=== PATIENT | female | born 1975 | race Caucasian/White ===

== ENCOUNTER → 2024-09-16 08:01 | Outpatient (REF) | payer OTHER, SELFPAY | LOC: HWWDC 08:01 | PROVIDERS: ATTENDING PHYSICIAN Nurse Practitioner Family | DX: Z12.31 Encounter for screening mammogram for malignant neoplasm of breast (principal) | CPT/HCPCS: 77063; 77067 ==

== ENCOUNTER → 2024-09-22 09:27 | Outpatient (REF) | payer OTHER, SELFPAY | LOC: WDC 09:27 | PROVIDERS: ATTENDING PHYSICIAN Nurse Practitioner Family | DX: R92.8 Other abnormal and inconclusive findings on diagnostic imaging of breast (principal) | CPT/HCPCS: 76642 ==

== ENCOUNTER 2025-03-30 06:24 | Day surgery (SDC) | payer OTHER, SELFPAY | END 2025-03-30 13:21 | disposition home or self-care (01) | LOC: GI 06:24 | PROVIDERS: ATTENDING PHYSICIAN Internal Medicine Gastroenterology | DX: Z12.11 Encounter for screening for malignant neoplasm of colon (principal); K57.30 Diverticulosis of large intestine without perforation or abscess without bleeding; K64.8 Other hemorrhoids; D12.5 Benign neoplasm of sigmoid colon; K63.5 Polyp of colon; K62.1 Rectal polyp | CPT/HCPCS: 45385; 45380; 88305 ==

== ENCOUNTER → 2025-09-17 08:56 | Outpatient (REF) | payer OTHER, SELFPAY | LOC: HWWDC 08:56 | PROVIDERS: ATTENDING PHYSICIAN Nurse Practitioner Family | DX: Z12.31 Encounter for screening mammogram for malignant neoplasm of breast (principal) | CPT/HCPCS: 77063; 77067 ==

== ENCOUNTER 2025-10-06 15:08 | Emergency (ER) | payer OTHER, SELFPAY ==
[2025-10-06 15:12] VITALS: BP 209/131
[2025-10-06 16:43] VITALS: BP 195/120
[2025-10-06] MEDS: TRANDATE 10 MG IV (17:01)
[2025-10-06 17:02] LABS: Hematocrit 41.4 % (37.0-47.0); Hemoglobin 14.2 g/dL (12.0-16.0); Mean Corp Hgb Conc. 34.3 g/dL (33.0-37.0); Mean Corpuscular Volume 84.8 fL (81.0-99.0); Nucleated Red Blood Cells % 0 %; Platelet Count 281 10^3/uL (130-400); Red Cell Dist. Width 13.0 % (11.5-14.5)
[2025-10-06 17:27] LABS: ALT (SGPT) 25 U/L (0-35); AST (SGOT) 25 U/L (14-36); Albumin 4.9 g/dl (3.5-5.0); Alkaline Phosphatase 96 U/L (38-126); Blood Urea Nitrogen 10 mg/dl (7-17); Calcium 9.5 mg/dl (8.4-10.2); Carbon Dioxide 24 mmol/L (22-30); Chloride 103 mmol/L (98-107); Glucose 110 mg/dl (70-99); Potassium 3.9 mmol/L (3.5-5.1); Sodium 138 mmol/L (135-145); Total Protein 8.0 g/dl (6.3-8.2); eGFR > 60.00
[2025-10-06 17:39] LABS: Troponin I < 0.012 ng/ml
[2025-10-06 17:43] VITALS: BP 173/109
--- NOTE | 2025-10-06 17:56 | ED.GENMED ---
History of Present Illness
General
Chief Complaint: Blood Pressure Problem
Time Seen by Provider: 10/06/25 16:14
History of Present Illness
History of Present Illness:
49-year-old female presenting to the emergency department with concern of elevated blood pressure. 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 At that visit, was noted to have very high blood pressure, was
prompted to come to the hospital for further assessment. Denies any known history of high blood pressure. Does note some family history. Since arriving to the hospital, has noted some mild chest discomfort. Denies any known history of cardiac
disease or any difficulty breathing. Denies any lightheaded or dizziness. Denies visual changes. Denies any weakness or numbness to her extremities or additional acute medical complaints
Phy Exam
Physical Exam
Physical Exam:
General: Well-appearing, no clinical signs of dehydration, nontoxic and in no acute distress
HEENT: protecting airway
Neck: appears supple
CV: Normal heart rate, regular rhythm
Resp: No accessory muscle use, no increased work of breathing, lungs clear to auscultation bilaterally
Abd: No distention
Extremities: No deformities, no swelling
Neuro: alert, no focal neurologic deficit
: deferred
Rectal: deferred
Psych: Normal affect
Skin: Intact
Course
Orders/Labs/Results
Orders:
Orders
10/06/25 15:35
Electrocardiogram (*1) Urgent
Reason for Study: Hypertension, Benign
EKG- Treatment ONCE
10/06/25 16:49
Complete Blood Count/With Diff Urgent
Comprehensive Metabolic Panel Urgent
Troponin I Urgent
10/06/25 16:50
Labetalol HCl [Trandate] 10 mg IV NOW STA
Abnormal Lab Results
10/06/25
16:49
Glucose 110 H mg/dl
(70-99)
10/06/25 16:49
10/06/25 16:49
Vital Signs
Initial and Last Documented VS:
Initial Vital Signs
Temp Pulse Resp BP Pulse Ox
97.7 F 73 20 209/131 99
10/06/25 15:12 10/06/25 15:12 10/06/25 15:12 10/06/25 15:12 10/06/25 15:12
Last Documented Vital Signs
Temp Pulse Resp BP Pulse Ox
97.7 F 69 16 173/109 100
10/06/25 15:12 10/06/25 17:43 10/06/25 17:43 10/06/25 17:43 10/06/25 17:57
MDM/Problems Addressed
MDM/Problems Addressed:
49-year-old female presenting to the emergency department for elevated blood pressure. Vital signs on arrival significant for high blood pressure.
On exam, patient is resting comfortably, currently asymptomatic. Patient is markedly hypertensive, however at this time, again asymptomatic hypertension. No present concern for hypertensive urgency urgency. Will screen with EKG and laboratory
analysis. No current indication for advanced head imaging, no focal neurologic deficits.
18:00 - Labs are unremarkable without any evidence of endorgan dysfunction. Given level patient's blood pressure, will start her on an antihypertensive with plan for close interval follow-up with PCP regarding blood pressure management and blood
pressure recheck. Strict return precautions communicated and patient verbalized understanding
*Pulse Oximetry
SaO2: 100
Oxygen Mode of Delivery: Room air
Patient hypoxic: no
*EKG
Interpreted by ED Provider?: Yes
EKG Intrepretation Date: 10/06/25
EKG Intrepretation Time: 17:58
Interpretation: normal
Heart Rate: 62
Rate: normal
Rhythm: sinus
[place]: normal axis
Interval: normal interval
QRS Pattern: normal QRS
Ischemia: no ischemia
*Critical Care Note
Total Time (30-74mins, 75-104mins- exclusive of procedures): Not Applicable
ED Attending Note
-
Portions of this chart may have been created with voice recognition software.� Occasional wrong word or��sound alike� substitutions may have occurred due to the inherent limitations of voice recognition software.
Discharge Plan
Departure
Patient with high blood pressure during this ER visit?: Yes
Condition: Good
Discharge Problem:
Hypertension
Instructions: High Blood Pressure (DC)
Prescriptions:
New
amlodipine 5 mg tablet
5 mg PO DAILY Qty: 30 0RF
Referrals:
Lucia Solorzano CRNP [Family Provider, Family Practice]
Activity Restrictions/Additional Instructions:
You were seen in the emergency department for high blood pressure
You were found to have reassuring laboratory analysis and EKG. We are starting you on amlodipine for blood pressure control
Please follow-up closely with your primary care physician for management of your high blood pressure.
Return to the emergency department for any worsening of your symptoms, or any development of chest pain, difficulty breathing, abdominal pain with persistent vomiting and inability to tolerate food or liquid by mouth (concern for dehydration),
weakness, headache or confusion, fever greater than 100.4, or any additional symptoms that are concerning to you.
Thank you for choosing [facility].
Interventions
Interventions:
*General Assessment Last Done: 10/06/25 15:12
*Neglect/Abuse Screening Last Done: 10/06/25 15:12
*ED COVID-19 Vaccine History Last Done: 10/06/25 16:35
*ED Influenza Vaccine History Last Done: 10/06/25 16:35
[facility] Risk Assessment Tool Last Done: 10/06/25 16:35
*Risk Screen - Suicide (C-SSRS) Last Done: 10/06/25 15:12
ED- Cardiac Assessment Last Done: 10/06/25 16:35
ED- Neurological Assessment Last Done: 10/06/25 16:35
ED- Pulmonary Assessment Last Done: 10/06/25 16:35
Discharge Date and Time
Print Language: SLOVAK
[2025-10-06] MEDS: NORVASC 5 MG PO (18:08)
[2025-10-06 18:37] VITALS: BP 171/105
== END 2025-10-06 18:41 | disposition home or self-care (01) ==
LOC: EMR 15:08
PROVIDERS: EMERGENCY PHYSICIAN Student in an Organized Health Care Education/Training Program; FAMILY PHYSICIAN Nurse Practitioner Family
DX: I10 Essential (primary) hypertension (principal); R07.89 Other chest pain
CPT/HCPCS: 99284; 96374; 80053; 84484; 85025; 93005